=== PATIENT | male | born 1950 ===

== ENCOUNTER 2022-08-05 12:38 | Emergency (ER) | payer MEDICARE, SELFPAY ==
--- NOTE | ~2022-08-05 | CT_ITS ---
EXAMINATION: CT ANGIOGRAM OF THE HEAD CT ANGIOGRAM OF THE NECK CLINICAL INFORMATION: Left neck pulsatile pain, with shortness of breath and lightheadedness. COMPARISON: There are no prior studies available for comparison. TECHNIQUE: Test bolus series followed by intravenous administration 50 mL of Omnipaque 350. Helical imaging was performed in the axial plane from the mediastinum to the skull vertex. The degree of stenosis is based off NASCET criteria. The data was processed at the cath lab technologist workstation for generation of MIP images. Three-dimensional volume rendered reformatted images were also generated at an offline 3-D workstation. This CT examination was performed using dose optimization techniques as appropriate, variously including the following: *Automated exposure control *Adjustment of mA and/or kV according to patient size (this includes techniques or standardized protocols for targeted exams where dose is matched to indication/reason for exam; i.e. extremities or head) *Use of iterative reconstruction technique DLP: 2107 mGy-cm. FINDINGS: CT Head: There is no evidence of acute intracranial hemorrhage or territorial infarction. No abnormal mass-effect or midline shift is seen. There is equivocal loss of morel-white differentiation in the posterior occipital lobes bilaterally, likely artifact. No extra-axial fluid collections are identified. There is no abnormal enhancement. There is mild commensurate prominence of the ventricles and sulci. Overall, brain parenchymal attenuation is unremarkable. The osseous structures and soft tissues are normal. The mastoid air cells and visualized portions of the paranasal sinuses are well-aerated. CTA Neck: There is a classic configuration of the arch of the aorta. The great vessels of the neck are widely patent. The subclavian arteries appear normal bilaterally. The common carotid arteries have normal caliber. The carotid bifurcations bilaterally appear normal. The internal carotid arteries in the neck bilaterally have uniform and normal caliber. The origin of the right vertebral artery is well-demonstrated. The origin of the left vertebral is obscured by beam hardening artifact from contrast in the venous structures on the left. Both vertebral arteries are patent. The left vertebral artery has uniformly thinner caliber compared to the right throughout its cervical course, but both vertebral arteries are patent. Nonvascular: There is a 3 mm nodule in the right upper lobe. There are mild emphysematous changes bilaterally. There is mild atelectasis in the posterior lung [place] bilaterally. The right lobe of the thyroid gland is larger compared to the left, but appears to have homogenous attenuation artifact from a low density nodule toward the upper pole which measures 2.5 mm, and is not clinically significant. There is no cervical lymphadenopathy. CTA Head: The intracranial internal carotid arteries and their bifurcations appear normal. The middle and anterior cerebral arteries bilaterally demonstrate normal caliber with no evidence of focal stenosis, aneurysm or vascular malformation. There is normal arborization of the middle cerebral artery branches. The anterior communicating artery is normal. In the posterior circulation, the right vertebral artery is dominant, and the left vertebral artery ends primarily in the PICA. The basilar artery appears normal. There is a origin of the right posterior cerebral artery. The posterior cerebral arteries have normal caliber. The venous sinuses opacify normally. CT/CT angio head neck IMPRESSION: CT HEAD AND NECK: 1. There are no acute bleeds or territorial infarcts. There are no masses or areas of abnormal enhancement. 2. There is a 3 mm nodule in the right upper lobe of the lung. Per the 2017 revised Fleischner Society guidelines, no routine follow up is necessarily required in low-risk patients, and consideration of [address] is recommended for patients at high-risk for the development of pulmonary neoplasm. 3. There is no cervical lymphadenopathy. CTA HEAD AND NECK: 1. The origin of the left vertebral artery is obscured by beam hardening artifact from contrast in the venous structures. The left vertebral artery has uniformly thinner caliber compared to the right, but both vertebral arteries are patent. 2. Intracranially there are no focal stenoses, aneurysms or vascular malformations.
--- NOTE | ~2022-08-05 | CT_ITS ---
EXAMINATION: CT ANGIOGRAM OF THE CHEST WITH AND WITHOUT CONTRAST (CT PULMONARY ANGIOGRAM FOR PE) CLINICAL INFORMATION: Reason for Exam elevated d-dimer, sob COMPARISON: None available. TECHNIQUE: Prior to contrast administration, noncontrast localization images were obtained. Subsequently, multidetector volumetric imaging was performed from the thoracic inlet to below the diaphragms following the administration of 50 mL Omnipaque 350 intravenous contrast. No contrast reaction reported Sagittal, coronal, and MIP oblique sagittal reformatted images were obtained on the CT workstation, uploaded to PACS, and reviewed. This CT examination was performed using dose optimization techniques as appropriate, variously including the following: *Automated exposure control *Adjustment of mA and/or kV according to patient size (this includes techniques or standardized protocols for targeted exams where dose is matched to indication/reason for exam; i.e. extremities or head) *Use of iterative reconstruction technique Total exam dose-length product 361 mGy-cm FINDINGS: QUALITY OF STUDY/CONTRAST BOLUS: Satisfactory. PULMONARY ARTERIES: No evidence of filling defects in the central and proximal subsegmental vessels to suggest pulmonary emboli. The segmental vessels in bilateral lower lobes are slightly suboptimally evaluated due to respiratory motion artifact. THORACIC AORTA: No aneurysm. LUNG: Prominent ground glass opacities in the posterior aspect of the right lung, as well as in the left lower lobe. These findings could represent dependent changes. No dense consolidation is seen. 4 mm nodule right lower lobe. No suspicious nodules otherwise seen. PLEURA: No pleural effusion or pneumothorax. MEDIASTINUM: Normal heart size. No pericardial effusion. No hilar or mediastinal pathologically enlarged lymph nodes. There are subcentimeter lymph notes. Moderate-large hiatal hernia. CORONARY ARTERY CALCIFICATION: Coronary artery calcification seen. CHEST WALL/AXILLA: No axillary or internal mammary lymphadenopathy. OSSEOUS STRUCTURES: No acute or suspicious osseous abnormality. Spondylosis in the visualized spine. UPPER ABDOMEN: Multiple low attenuation masses in the liver. The larger fluid attenuation compatible with cysts. The smaller lesions are too small to characterize, probably reflecting cysts as well. No reflux of contrast into the hepatic veins to suggest elevated right heart pressures. CT/CT angio chest PE protocol IMPRESSION: No evidence of filling defects to suggest central or proximal subsegmental pulmonary emboli. Moderate-large hiatal hernia. Prominent ground glass opacification of the posterior aspect of bilateral lungs as detailed above. This may reflect atelectasis. Inflammatory or infectious causes could have this appearance in the appropriate clinical circumstance. Multiple low-attenuation liver lesions. The larger are compatible with cysts. The smaller too small to characterize, probably reflecting cysts as well. Further characterization with ultrasound and MRI could be considered, as clinically indicated. 4 mm pulmonary nodule. According to the UPDATED 2017 Fleischner Society recommendations, the advised follow-up imaging for solid nodules < 6 mm is: LOW RISK PATIENT: No routine follow-up. HIGH RISK PATIENT: Optional CT at 12 months. VTE: negative
--- NOTE | ~2022-08-05 | XR_ITS ---
EXAMINATION: XR CHEST CLINICAL INFORMATION: Weakness COMPARISON: None available. TECHNIQUE: 2 views of the chest were obtained. FINDINGS: The cardiac silhouette does not appear enlarged. There is an air-fluid level behind the heart probably representing an esophageal hernia. Hilar and mediastinal contours are otherwise unremarkable. The lungs are clear. No pleural effusion or pneumothorax. There are degenerative changes of the spine. XR/XR chest 2V IMPRESSION: Esophageal hernia.
[2022-08-05 13:16] VITALS: BP 91/73; PULSE 74; RESP 16; TEMP 36.6; O2SAT 95; BMI 27.7
--- NOTE | 2022-08-05 13:17 | ED_ITS ---
HPI - General Adult General Chief complaint: Weakness Stated complaint: Weakness/Dizziness/SOB Time Seen by Provider: 08/05/22 15:21 Source: patient, RN notes reviewed and old records reviewed Mode of arrival: ambulatory History of Present Illness HPI narrative: 71-year-old male with no significant past medical history of present to the ED complaining of generalized fatigue/weakness, intermittent SOB and lightheadedness x few weeks. States no energy to perform daily activities, with increasing difficulty working out. States typically hikes with brother and performs pushups/dips which he has been having difficulty due to fatigue. Also reports mild headaches in the morning and intermittent pulsations in neck. Denies recent fall/injury, chest pain, abdominal pain, nausea/vomiting, pedal edema, fever, cough. Denies taking anticoagulation Onset (ago): week(s) Related Data Allergies Allergy/AdvReac Type Severity Reaction Status Date / Time No Known Allergies Allergy Verified 08/05/22 13:16 Review of Systems Review of Systems: Constitutional: No Fever, No Chills, + Fatigue, + Malaise ENT/Mouth: No Hearing loss, No Ear Pain, No Nasal Congestion, No sore throat, No Rhinorrhea, No Swallowing Difficulty Eyes: No Eye Pain, No Swelling, No Redness, No Vision Changes Cardiovascular: No Chest Pain, + SOB, + Dyspnea on Exertion, No Orthopnea, No Edema Respiratory: No Cough, No Sputum, No Wheezing, No Dyspnea Gastrointestinal: No Nausea, No Vomiting, No Diarrhea, No Constipation, No Abdominal pain Genitourinary: No Dysuria, No Urinary Frequency, No Hematuria, No Urinary Incontinence/retention, No Flank Pain Musculoskeletal: No joint pain, No Myalgias, No Joint Swelling Skin: No Skin Lesions, No rash Neuro: + Weakness, No Numbness, No Paresthesias, No Loss of Consciousness, + lightheadedness, + Headache Yes all other systems are reviewed and are negative Constitutional: Constitutional: Reports as per HPI Neurologic: Denies Abnormal speech present [facility] Past Medical History Attestation statement: The following information was validated with the patient. Source: old records reviewed Social History Social History Alcohol intake: current Alcohol intake frequency: 3 or more drinks per day [place] hol type: beer Smoked in Last 30 Days: No Advance Directives: No Advance Directives Information Provided: No Physical Exam ED Vital Signs: Vital Signs - 24 hr 08/05/22 13:16 08/05/22 14:49 08/05/22 15:41 Temperature 97.8 F Pulse Rate 74 90 76 Respiratory Rate 16 18 Blood Pressure 91/73 140/73 H 113/71 Pulse Oximetry 95 98 Oxygen Delivery Method Room Air Room Air 08/05/22 15:41 08/05/22 15:44 08/05/22 15:45 Temperature 98.0 F Pulse Rate 70 93 108 H Respiratory Rate 20 Blood Pressure 113/71 119/74 107/75 Pulse Oximetry 97 Oxygen Delivery Method Room Air BMI result Body Mass Index 27.7 Const General: cooperative, healthy appearing, no acute distress, alert and awake Orientation/consciousness: patient oriented x3 Limitations: no limitations HENMT Head: Yes normal to inspection and Yes atraumatic Ears: hearing grossly normal bilaterally General nose exam: Normal external nose present Face and sinus: Yes normal facial exam Throat: Yes posterior oropharynx normal, Yes tonsils normal and Yes uvula midline Eyes General: appearance normal, both eyes and all related structures Pupils: Equal, round and reactive pupils present EOM: EOMs intact bilaterally Neck Neck: Yes normal visual inspection, Yes no meningeal signs, Yes supple, No anterior neck swelling and No torticollis Resp Effort & Inspection: normal respiratory effort and no respiratory distress Auscultation: clear to auscultation bilaterally, no crackles, no rales, no rhonchi and no wheezes Cardio Rate: regular rate Heart sounds: S1 normal heart sound present and S2 normal heart sound present GI Inspection: Yes normal to inspection Palpation (GI): Soft to palpation, nontender, no guarding and not rigid Back/Spine/Pelvis Other: No midline cervical/thoracic/lumbar spinous tenderness/step-off or deformity Skin Rashes: no rashes Wounds: no wounds Neuro General: patient oriented x3, gait normal, tone normal, moves all extremities, no meningeal signs, no focal motor deficits and CN's II-XI intact bilaterally Cranial nerves: Yes CN's II-XII intact bilaterally, Yes Equal, round and reactive pupils present and Yes Bilaterally intact EOM present Cognition (Neuro): normal cognition Speech: No Abnormal speech present Gait exam (Neuro): Normal gait present Motor exam (neuro): 5/5 motor strength present throughout Extrem General: Yes normal to inspection and Yes normal gait Course Course Course Narrative: This is an RME: Additional HPI, ROS, PE not included below will be deferred to primary provider. This is a [id number]-male, with no known presenting to the emergency department with complaints of not feeling right for the last few weeks. He endorses whole body weakness, dizziness, shortness of breath. He is unable to go hiking with his family. Admits intermittent dizziness over the last several weeks. No unilateral weakness. Pt is neurologically intact. He went to urgent care two days ago for these symptoms who gave him blood pressure medications - bp was 140/ something . Reports 10lb weight loss in the last week. Pt is ambulatory with steady gait. Plan: Labs, EKG, UA, chest x-ray ordered. -1546--no leukocytosis. Labs otherwise reassuring -D-dimer elevated will obtain CTA to rule out PE -1613--ED care transferred to [facility] pending troponin, COVID/flu/RSV, CTA PE & CTA head and neck Reevaluation(s) Reevaluation #1: 1630-Received sign out from Denae STATON pending CT Reevaluation #2: 1900- IMPRESSION: No evidence of filling defects to suggest central or proximal subsegmental pulmonary emboli. ? Moderate-large hiatal hernia. ? Prominent ground glass opacification of the posterior aspect of bilateral lungs as detailed above. This may reflect atelectasis. Inflammatory or infectious causes could have this appearance in the appropriate clinical circumstance. ? Multiple low-attenuation liver lesions. The larger are compatible with cysts. The smaller too small to characterize, probably reflecting cysts as well. Further characterization with ultrasound and MRI could be considered, as clinically indicated. ? 4 mm pulmonary nodule. According to the UPDATED 2017 Fleischner Society recommendations, the advised follow-up imaging for solid nodules < 6 mm is: ?? LOW RISK PATIENT: No routine follow-up. ?? HIGH RISK PATIENT: Optional CT at 12 months. ? Reviewed incidental findings with the patient. We did discuss the lung findings. Patient denies any cough or fevers so I doubt that this is pneumonia. Patient did have mild orthostatic hypotension and he received IV fluids and is feeling overall improved. Patient does report generalized fatigue, is a fisherman and outdoors frequently. No known tick bites. No rash, headaches, neck pain or neck stiffness, polyarthralgia. Will send lyme panel w/ recommendations to f/u with PCP outpatient. Reviewed worrisome signs and symptoms when to return to the emergency room. Comfortable plan for discharge home Medications Administered Discontinued Medications Generic Name Dose Route Start Last Admin Trade Name Pantera PRN Reason Stop Dose Admin Sodium Chloride 1,000 mls @ 999 mls/hr 08/05/22 17:00 08/05/22 18:18 Ns IV 08/05/22 18:00 Infused .Q1H1M GIBSON Infusion Sodium Chloride 500 mls @ 999 mls/hr 08/05/22 17:00 08/05/22 17:45 Ns IV 08/05/22 17:30 Infused .Q31M GIBSON Infusion Iohexol 100 ml 08/05/22 17:20 08/05/22 17:20 Iohexol 350 Mg/Ml 100 Ml Infus..Btl IV 08/05/22 17:21 100 ml ONCE ONE Administration Medical Decision Making Medical Decision Making [facility] Narrative: 71-year-old male with no significant past medical history of present to the ED complaining of generalized fatigue/weakness, intermittent SOB and lightheadedness x few weeks. Also reports mild headaches in the morning and intermittent pulsations in neck. On exam vital signs stable, NAD, nontoxic appearing, lungs CTA, abdomen soft/nontender, no focal neuro deficits, ambulating with steady gait. Concern for viral illness vs infectious pathology vs cervical ?dissection or aneurysm vs PE or CHF. Low suspicion for meningitis/encephalitis or SAH Plan: EKG, labs, UA, CXR, CT head and neck, orthostatics, COVID/flu/RSV, re- evaluated Please refer to course for remaining clinical decision making, interpretation of labs/imaging results, and discussions with consultants and/or family members. Differential Diagnosis Differential Diagnoses: The differential diagnosis associated with the presentation includes As above Admission/Observation Consideration of admission/observation: Escalation of care including admission/observation considered Lab Data [facility] Lab Attestation statement: I reviewed the patient's lab results. 08/05/22 13:40 08/05/22 13:40 Labs: Lab Results 08/05/22 08/05/22 08/05/22 Range/Units 13:40 13:40 13:40 WBC 6.2 (4.8-10.8) X10*3/uL RBC 5.03 (4.60-5.80) X10*6/uL Hgb 15.6 (14.0-18.0) g/dl Hct 47.1 (42.0-52.0) % MCV 93.6 (80.0-98.0) fL MCH 31.0 (27.0-33.0) pg MCHC 33.1 (31.0-36.0) g/dl RDW 12.5 (11.0-16.0) % Plt Count 240 (160-400) X10*3/uL MPV 11.8 (9.4-12.4) fL Immature Gran % (Auto) 0.3 (0.0-0.4) % Neut % (Auto) 64.9 (45-73) % Lymph % (Auto) 20.8 (20-40) % Summit % (Auto) 12.7 H (2-11) % Eos % (Auto) 1.0 (0-4) % Baso % (Auto) 0.3 (0-2) % Lymph # (Auto) 1.3 (1.2-4.9) X10*3/uL Summit # (Auto) 0.8 (0.1-1.2) X10*3/uL Eos # (Auto) 0.1 (0.0-0.4) X10*3/uL Baso # (Auto) 0.0 (0.0-0.2) X10*3/uL Abs Immat Gran (auto) 0.02 (0.00-0.03) X10*3/uL Absolute Neuts (auto) 4.0 (2.0-8.3) x10*3/uL Absolute Nucleated RBC 0.000 (0.0-0.012) X10*3/uL Nucleated RBC % (auto) 0.0 (0.0-0.2) /100WBC PT (10.0-13.1) SEC INR (0.9-1.1) D-Dimer High Sensitivty NG/ML Sodium 140 (135-145) mmol/L Potassium 5.0 (3.3-5.1) mmol/L Chloride 100 (96-108) mmol/L Carbon Dioxide 29 (22-29) mmol/L Anion Gap 16 (12-20) BUN 14 (9-16) mg/dL Creatinine 0.88 (0.5-1.4) mg/dL Estim Creat Clear Calc 74.6 Estimated GFR > 60 Random Glucose 101 (60-115) mg/dL Calcium 10.0 (8.4-10.2) mg/dL Magnesium 2.5 (1.6-2.6) mg/dL Total Bilirubin 0.7 (0.0-1.0) mg/dL Direct Bilirubin 0.2 (0.0-0.5) mg/dL AST 27 (5-37) U/L ALT 19 (0-40) U/L Alkaline Phosphatase 91 (39-117) U/L Troponin I High Sens (<3.5-35.0) ng/L B-Natriuretic Peptide < 10 (<100) pg/mL Total Protein 8.2 H (6.5-8.0) g/dL Albumin 4.6 (3.5-5.0) g/dL Influenza Type A (PCR) (Negative) Influenza Type B (PCR) (Negative) RSV RNA Qual (PCR) (Negative) SARS-CoV-2 RNA (RT-PCR) (Negative) 08/05/22 08/05/22 08/05/22 Range/Units 15:34 15:34 15:38 WBC (4.8-10.8) X10*3/uL RBC (4.60-5.80) X10*6/uL Hgb (14.0-18.0) g/dl Hct (42.0-52.0) % MCV (80.0-98.0) fL MCH (27.0-33.0) pg MCHC (31.0-36.0) g/dl RDW (11.0-16.0) % Plt Count (160-400) X10*3/uL MPV (9.4-12.4) fL Immature Gran % (Auto) (0.0-0.4) % Neut % (Auto) (45-73) % Lymph % (Auto) (20-40) % Summit % (Auto) (2-11) % Eos % (Auto) (0-4) % Baso % (Auto) (0-2) % Lymph # (Auto) (1.2-4.9) X10*3/uL Summit # (Auto) (0.1-1.2) X10*3/uL Eos # (Auto) (0.0-0.4) X10*3/uL Baso # (Auto) (0.0-0.2) X10*3/uL Abs Immat Gran (auto) (0.00-0.03) X10*3/uL Absolute Neuts (auto) (2.0-8.3) x10*3/uL Absolute Nucleated RBC (0.0-0.012) X10*3/uL Nucleated RBC % (auto) (0.0-0.2) /100WBC PT 10.8 (10.0-13.1) SEC INR 0.9 (0.9-1.1) D-Dimer High Sensitivty 318 NG/ML Sodium (135-145) mmol/L Potassium (3.3-5.1) mmol/L Chloride (96-108) mmol/L Carbon Dioxide (22-29) mmol/L Anion Gap (12-20) BUN (9-16) mg/dL Creatinine (0.5-1.4) mg/dL Estim Creat Clear Calc Estimated GFR Random Glucose (60-115) mg/dL Calcium (8.4-10.2) mg/dL Magnesium (1.6-2.6) mg/dL Total Bilirubin (0.0-1.0) mg/dL Direct Bilirubin (0.0-0.5) mg/dL AST (5-37) U/L ALT (0-40) U/L Alkaline Phosphatase (39-117) U/L Troponin I High Sens < 2.7 (<3.5-35.0) ng/L B-Natriuretic Peptide (<100) pg/mL Total Protein (6.5-8.0) g/dL Albumin (3.5-5.0) g/dL Influenza Type A (PCR) NEGATIVE (Negative) Influenza Type B (PCR) NEGATIVE (Negative) RSV RNA Qual (PCR) NEGATIVE (Negative) SARS-CoV-2 RNA (RT-PCR) NEGATIVE (Negative) Radiology Impression Discussion of test interpretation with radiology: I have reviewed the radiologist's reading. External Record Review External record reviewed: Inpatient record, Office record, Outpatient record, Prior outpatient labs, Prior outpatient radiology, Primary care record and Outside ED record Tests considered The following testing was considered but not selected: As above Discharge Plan Discharge Clinical Impression: Fatigue, Shortness of breath Patient Disposition: Home, Self-Care Instructions: Fatigue (ED) Additional Instructions: We sent testing for lyme disease. We will call you of these results are positive and you require additional treatment. Please establish a primary care doctor Your CT shows incidental findings of a lung nodule and several liver lesions. You need to follow-up with primary care for monitoring of your pulmonary nodule and further workup for your liver lesions.
--- NOTE | 2022-08-05 13:20 | ECG_ITS ---
Test Reason : weakness Blood Pressure : / mmHG Vent. Rate : 066 BPM Atrial Rate : 066 BPM P-R Int : 164 ms QRS Dur : 092 ms QT Int : 362 ms P-R-T Axes : 024 -39 009 degrees QTc Int : 379 ms Sinus rhythm with marked sinus arrhythmia Left axis deviation Abnormal ECG No previous ECGs available Referred By: Jesi Murdock Electronically Signed By:Ender Culver
[2022-08-05 13:45] LABS: Basophils Percent Auto 0.3 % (0-2); Eosinophils Absolute Auto 0.1 X10*3/uL (0.0-0.4); Hematocrit 47.1 % (42.0-52.0); Hemoglobin 15.6 g/dl (14.0-18.0); Imm Gran Abs Auto 0.02 X10*3/uL (0.00-0.03); Imm Gran Pct Auto 0.3 % (0.0-0.4); Lymphocytes Absolute Auto 1.3 X10*3/uL (1.2-4.9); Lymphocytes Percent Auto 20.8 % (20-40); MANUAL DIFF FLAG NO; Mean Corpuscular HGB Conc 33.1 g/dl (31.0-36.0); Mean Corpuscular Volume 93.6 fL (80.0-98.0); Mean Platelet Volume 11.8 fL (9.4-12.4); Monocytes Absolute Auto 0.8 X10*3/uL (0.1-1.2); Monocytes Percent Auto 12.7 % (2-11); Neutrophils Percent Auto 64.9 % (45-73); Platelet Count 240 X10*3/uL (160-400); Red Blood Count 5.03 X10*6/uL (4.60-5.80); Red Cell Distribution Width 12.5 % (11.0-16.0); White Blood Count 6.2 X10*3/uL (4.8-10.8)
[2022-08-05 14:01] LABS: Alanine Aminotransferase 19 U/L (0-40); Albumin Level 4.6 g/dL (3.5-5.0); Alkaline Phosphatase 91 U/L (39-117); Anion Gap 16 (12-20); Aspartate Amino Transferase 27 U/L (5-37); Bilirubin Direct 0.2 mg/dL (0.0-0.5); Bilirubin Total 0.7 mg/dL (0.0-1.0); Blood Urea Nitrogen 14 mg/dL (9-16); Carbon Dioxide 29 mmol/L (22-29); Chloride 100 mmol/L (96-108); Creatinine Clr Calc Pharmacy 74.6; Estimated Glomerular Filt Rate > 60; Glucose Random 101 mg/dL (60-115); Magnesium 2.5 mg/dL (1.6-2.6); Sodium 140 mmol/L (135-145); Total Protein 8.2 g/dL (6.5-8.0)
[2022-08-05 14:06] LABS: B Type Natriuretic Peptide < 10 pg/mL (<100)
[2022-08-05 14:49] VITALS: BP 140/73; PULSE 90; RESP 18; O2SAT 98
[2022-08-05 15:41] VITALS: BP 113/71; PULSE 70; PULSE 76; RESP 20; TEMP 36.7; O2SAT 97
[2022-08-05 15:44] VITALS: BP 119/74; PULSE 93
[2022-08-05 15:45] VITALS: BP 107/75; PULSE 108
--- NOTE | 2022-08-05 16:22 | PC.NURSE ---
Called lab to clarify if blue top has been run, since other labs received that were sent down, Jesenia did not they had the tube and were running it
[2022-08-05 16:26] LABS: INTERNATIONAL NORM RATIO 0.9 (0.9-1.1); Prothrombin Time 10.8 SEC (10.0-13.1)
[2022-08-05 16:28] LABS: D Dimer High Sensitivity 318 NG/ML
[2022-08-05 16:34] LABS: Influenza A PCR NEGATIVE (Negative); Influenza B PCR NEGATIVE (Negative); Resp Syncy Virus RNA Qual PCR NEGATIVE (Negative); SARS COV2 PCR INHOUSE NEGATIVE (Negative)
[2022-08-05] MEDS: 0.9 % Sodium Chloride 1,000 ML 999 ML IV (17:19)
[2022-08-05] MEDS: 0.9 % Sodium Chloride 500 ML 999 ML IV (17:19)
[2022-08-05] MEDS: iohexoL 350 MG/ML 100 ML INFUS..BTL IV (17:20)
[2022-08-05 18:01] LABS: Troponin-I High Sensitivity < 2.7 ng/L (<3.5-35.0)
[2022-08-05 19:28] VITALS: BP 148/82; PULSE 80; RESP 12; TEMP 36.4; O2SAT 96
[2022-08-08 21:29] LABS: Lyme Abs Screen <0.90 index
== END 2022-08-05 19:35 | disposition home or self-care (01) ==
PROVIDERS: Nurse Practitioner Family; Physician Assistant; Physician Assistant Medical; Emergency Provider Internal Medicine
DX: R53.83 Other fatigue (principal); R06.02 Shortness of breath; M54.2 Cervicalgia; R51.9 Headache, unspecified; I49.9 Cardiac arrhythmia, unspecified; Z20.822 Contact with and (suspected) exposure to COVID-19; Z20.828 Contact with and (suspected) exposure to other viral communicable diseases; Z79.899 Other long term (current) drug therapy
CPT/HCPCS: 0241U; 36415; 70496; 70498; 71046; 71275; 80048; 80076; 83735; 83880; 84484; 85025; 85379; 85610; 86617; 86618; 93005; 96360; 99284; 99285; Q9967